=== PATIENT | male | born 1970 | race African-American/Black ===

== ENCOUNTER 2019-12-30 11:21 | Emergency (ER) | payer OTHER, SELFPAY ==
[2019-12-30] MEDS ORDERED: Adacel (T-DAP) 0.5 ML SYRINGE ONE (12:16)
[2019-12-30] MEDS ORDERED: Cefepime 2 GM VIAL ONE (12:16)
[2019-12-30] MEDS ORDERED: Lidocaine 1% (PF) 30 ML VIAL ONE (12:19)
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
== END 2019-12-30 13:44 | disposition home or self-care (01) ==
LOC: ERS 11:21
DX: S01.511A Laceration without foreign body of lip, initial encounter (principal); S61.012A Laceration without foreign body of left thumb without damage to nail, initial encounter; S80.211A Abrasion, right knee, initial encounter; S03.2XXA Dislocation of tooth, initial encounter; Z23 Encounter for immunization; V19.9XXA Pedal cyclist (driver) (passenger) injured in unspecified traffic accident, initial encounter
CPT/HCPCS: 12013; 70450; 70486; 90471; 90715; 96365; J0692; J2001